=== PATIENT | male | born 1965 | race Caucasian/White ===

== ENCOUNTER 2018-10-11 17:41 | Inpatient (IN) | payer MEDICAID, OTHER | END 2018-10-28 15:50 | disposition left against medical advice (07) | LOC: TELE-EAST 10-12 04:22 → EAST 10-25 10:41 → ER 17:41 → TELE 17:42 | DX: T43.222A Poisoning by selective serotonin reuptake inhibitors, intentional self-harm, initial encounter (principal); I11.0 Hypertensive heart disease with heart failure; I50.9 Heart failure, unspecified; R56.9 Unspecified convulsions; F20.9 Schizophrenia, unspecified; R16.0 Hepatomegaly, not elsewhere classified; F31.9 Bipolar disorder, unspecified; K74.60 Unspecified cirrhosis of liver; R07.89 Other chest pain; T14.91XA Suicide attempt, initial encounter; Y92.009 Unspecified place in unspecified non-institutional (private) residence as the place of occurrence of the external cause; E66.9 Obesity, unspecified; E78.5 Hyperlipidemia, unspecified; K21.9 Gastro-esophageal reflux disease without esophagitis; J44.9 Chronic obstructive pulmonary disease, unspecified; F12.10 Cannabis abuse, uncomplicated; E11.9 Type 2 diabetes mellitus without complications; Z86.73 Personal history of transient ischemic attack (TIA), and cerebral infarction without residual deficits; T46.1X2A Poisoning by calcium-channel blockers, intentional self-harm, initial encounter; T43.592A Poisoning by other antipsychotics and neuroleptics, intentional self-harm, initial encounter; F41.8 Other specified anxiety disorders; B19.20 Unspecified viral hepatitis C without hepatic coma ==

== ENCOUNTER 2019-10-31 14:22 | Emergency (ER) | payer MEDICAID ==
[~2019-10-31] VITALS: Ht 182.9 cm; Wt 110.7 kg
[~2019-10-31 14:22] MED LIST: AML5T PO; ASPI81CH43 PO; ATOR10TA PO; FLUO-125 PO; FLUO20CA19 PO; OXCA300T50 OR; PANT40T PO; QUET50TA5 PO; RIS1T PO; TRAZ-181 PO; [UNRECOGNIZED DRUG - CODE] PO
[2019-10-31 15:38] VITALS: BP 124/84
[2019-10-31] MEDS ORDERED: ACETAMINOPHEN 500 MG TAB PO ONE (16:30)
== END 2019-10-31 16:40 | disposition home or self-care (01) ==
LOC: ER 14:22
DX: S63.612A Unspecified sprain of right middle finger, initial encounter (principal); S61.212A Laceration without foreign body of right middle finger without damage to nail, initial encounter; F17.210 Nicotine dependence, cigarettes, uncomplicated; Z79.899 Other long term (current) drug therapy; Z79.82 Long term (current) use of aspirin; E11.9 Type 2 diabetes mellitus without complications; E78.5 Hyperlipidemia, unspecified; J44.9 Chronic obstructive pulmonary disease, unspecified; I10 Essential (primary) hypertension; W19.XXXA Unspecified fall, initial encounter; Y93.89 Activity, other specified; Y92.89 Other specified places as the place of occurrence of the external cause; Y99.8 Other external cause status
CPT/HCPCS: 73130

== ENCOUNTER 2020-05-19 11:37 | Emergency (ER) | payer MEDICAID ==
[~2020-05-19] VITALS: Ht 182.9 cm; Wt 108.9 kg
[2020-05-19] MEDS ORDERED: LORazepam 2MG/ML-1ML VIAL IV ONE ×2 (12:00→12:45)
[2020-05-19] MEDS ORDERED: methylPREDNISolone SOD SUCC 125 MG/2 ML VL IV ONE (12:00)
[2020-05-19] MEDS ORDERED: SODIUM CHLORIDE 0.9% 1,000 ML IV ONE ×3 (12:00→14:30)
[2020-05-19 12:24] LABS: Basophils # (auto) 0.1 10 ^3/uL (0-0.2); Basophils % (auto) 0.9 % (0.0-2.0); Eosinophils # (auto) 0.2 10 ^3/uL (0-0.8); Eosinophils % (auto) 1.8 % (0.0-7.0); Hematocrit 46.5 % (41.0-53.0); Hemoglobin 15.8 g/dL (13.5-17.5); Lymphocytes # (auto) 1.1 10 ^3/uL (0.4-5.4); Lymphocytes % (auto) 13.4 % (10.0-50.0); Mean Corpuscular Hemoglobin 29.6 pg (28.0-32.0); Monocytes # (auto) 0.5 10 ^3/uL (0-1.3); Monocytes % (auto) 6.5 % (0.0-12.0); Neutrophils # (auto) 6.5 10 ^3/uL (1.6-8.6); Neutrophils % (auto) 77.4 % (37.0-80.0); Nucleated Red Blood Cells % 0.1 %; Platelet Count (auto) 223 10^3/uL (140-450); Red Blood Cells 5.35 10^6/uL (4.5-5.90); Red Cell Distribution Width 14.1 % (11.8-14.3); White Blood Cell 8.4 10^3/uL (4.4-10.8)
[2020-05-19 12:40] LABS: INR 0.98 (0.9-1.15)
[2020-05-19 12:57] LABS: Chloride 109 mmol/L (98-107); Potassium 4.3 mmol/L (3.5-5.1); Sodium 137 mmol/L (136-145)
[2020-05-19 13:09] LABS: Alanine Aminotransferase 106 U/L (16-61); Albumin 3.5 g/dL (3.4-5.0); Anion Gap 8 (5-15); Aspartate Aminotransferase 57 U/L (15-37); BUN/Creatinine Ratio 15.6; Blood Alcohol < 3.0 mg/dL (0-5); Blood Urea Nitrogen 12 mg/dL (7-18); Calcium 8.6 mg/dL (8.5-10.1); Carbon Dioxide 20 mmol/L (21-32); GFR African American 134 mL/min; GFR Non-African American 111 mL/min; Glucose 161 mg/dL (74-106); Magnesium 2.2 mg/dL (1.6-2.6)
[2020-05-19 13:10] LABS: Salicylate 2.9 mg/dL (2.8-20.0)
[2020-05-19 13:12] LABS: Acetaminophen < 2.0 ug/mL (10-30)
[2020-05-19 13:24] LABS: Alkaline Phosphatase 128 U/L (45-117); Bilirubin, Total 0.4 mg/dL (0.2-1.0); Total Protein 8.4 g/dL (6.4-8.2)
[2020-05-19 15:54] LABS: Alcohol, Urine < 3.0 mg/dL (0-10); Amphetamine Screen, Urine POSITIVE (NEGATIVE); Barbiturate Scree,Urine NEGATIVE (NEGATIVE); Benzodiazephine Screen, Urine NEGATIVE (NEGATIVE); Cannabinoid Screen, Urine POSITIVE (NEGATIVE); Cocaine Screen, Urine NEGATIVE (NEGATIVE); Phencyclidine Screen, Urine NEGATIVE (NEGATIVE)
[2020-05-19] MEDS ORDERED: THIAMINE INJ 100 MG in SODIUM CHLORIDE 0.9% 1,000 ML IV ONE (16:00)
[2020-05-19 16:01] LABS: Opiate Scree,Urine NEGATIVE (NEGATIVE)
[2020-05-19 16:14] VITALS: BP 145/73
== END 2020-05-19 17:32 | disposition home or self-care (01) ==
LOC: ER 11:37
DX: T43.201A Poisoning by unspecified antidepressants, accidental (unintentional), initial encounter (principal); R07.89 Other chest pain; K74.60 Unspecified cirrhosis of liver; F10.239 Alcohol dependence with withdrawal, unspecified; F19.10 Other psychoactive substance abuse, uncomplicated; I11.0 Hypertensive heart disease with heart failure; I50.9 Heart failure, unspecified; E11.9 Type 2 diabetes mellitus without complications; F17.210 Nicotine dependence, cigarettes, uncomplicated; E78.5 Hyperlipidemia, unspecified; Z90.49 Acquired absence of other specified parts of digestive tract; Z20.822 Contact with and (suspected) exposure to COVID-19; Y90.8 Blood alcohol level of 240 mg/100 ml or more; Y92.9 Unspecified place or not applicable
CPT/HCPCS: 36415; 71045; 80053; 80307; 80320; 80329; 83605; 83735; 83880; 84443; 84484; 85025; 85379; 85610; 85730; 87426; 93005; 96361; 96365; 96375; 96376; 99285; J2060; J2930; J3411; J7030

== ENCOUNTER 2020-05-26 18:48 | Emergency (ER) | payer MEDICAID ==
[~2020-05-26] VITALS: Ht 185.4 cm; Wt 117.9 kg
[2020-05-26 19:15] LABS: Basophils # (auto) 0.1 10 ^3/uL (0-0.2); Basophils % (auto) 0.4 % (0.0-2.0); Eosinophils # (auto) 0 10 ^3/uL (0-0.8); Hematocrit 46.1 % (41.0-53.0); Hemoglobin 15.3 g/dL (13.5-17.5); Lymphocytes # (auto) 1.2 10 ^3/uL (0.4-5.4); Lymphocytes % (auto) 7.4 % (10.0-50.0); Mean Corpuscular Hemoglobin 29.3 pg (28.0-32.0); Mean Corpuscular Hgb Conc. 33.1 g/dL (32.0-36.0); Mean Corpuscular Volume 88.5 fL (80.0-100.0); Monocytes # (auto) 0.7 10 ^3/uL (0-1.3); Monocytes % (auto) 4.6 % (0.0-12.0); Neutrophils # (auto) 14.2 10 ^3/uL (1.6-8.6); Neutrophils % (auto) 87.6 % (37.0-80.0); Nucleated Red Blood Cells % 0.1 %; Platelet Count (auto) 245 10^3/uL (140-450); Red Blood Cells 5.21 10^6/uL (4.5-5.90); Red Cell Distribution Width 14.6 % (11.8-14.3); White Blood Cell 16.3 10^3/uL (4.4-10.8)
[2020-05-26] MEDS ORDERED: ACCU-CHEK COMFORT CURVE STRIP VI ONE (19:15)
[2020-05-26 19:32] LABS: Albumin 4.2 g/dL (3.4-5.0); BUN/Creatinine Ratio 22.8; Calcium 8.5 mg/dL (8.5-10.1); Potassium 4.8 mmol/L (3.5-5.1)
[2020-05-26 19:33] LABS: Salicylate < 1.7 mg/dL (2.8-20.0)
[2020-05-26 19:34] LABS: Acetaminophen < 2.0 ug/mL (10-30); Bilirubin, Total 0.7 mg/dL (0.2-1.0); Cocaine Screen, Urine NEGATIVE (NEGATIVE); Phencyclidine Screen, Urine NEGATIVE (NEGATIVE); Total Protein 8.5 g/dL (6.4-8.2)
[2020-05-26 19:47] LABS: Amphetamine Screen, Urine POSITIVE (NEGATIVE); Barbiturate Scree,Urine NEGATIVE (NEGATIVE); Benzodiazephine Screen, Urine POSITIVE (NEGATIVE); Opiate Scree,Urine NEGATIVE (NEGATIVE)
[2020-05-26 20:01] LABS: Cannabinoid Screen, Urine POSITIVE (NEGATIVE)
[2020-05-26 20:31] LABS: Urine Bacteria NONE SEEN /hpf (None Seen); Urine Blood Negative /uL (Negative); Urine Hyaline Cast MANY /lpf (0 - 2); Urine Mucus FEW (None Seen); Urine Specific Gravity 1.025 (1.001-1.035); Urine WBC <1 /hpf (0 - 3)
[2020-05-27] MEDS ORDERED: ONDANSETRON HCL 4 MG/2 ML VIAL IV ONE (02:45)
[2020-05-27] MEDS ORDERED: FAMOTIDINE (10MG/ML) 2ML VL IV ONE (03:00)
[2020-05-27] MEDS ORDERED: DONNATAL 5ml ORAL Elix (BELLADONNA ALK-PHENOBARB) PO ONE (04:45)
[2020-05-27] MEDS ORDERED: METOCLOPRAMIDE HCL 5MG/ml INJ 2ml VIAL IV ONE (04:45)
[2020-05-27 08:06] VITALS: BP 123/72
== END 2020-05-27 09:50 | disposition left against medical advice (07) ==
LOC: EDBD 18:48 → ER 18:51
DX: R41.82 Altered mental status, unspecified (principal); I11.0 Hypertensive heart disease with heart failure; I50.9 Heart failure, unspecified; E11.9 Type 2 diabetes mellitus without complications; Z88.6 Allergy status to analgesic agent; Z86.73 Personal history of transient ischemic attack (TIA), and cerebral infarction without residual deficits
CPT/HCPCS: 36415; 76705; 80053; 80307; 80329; 81001; 82962; 83605; 85025; 87040; 93005; 96374; 96375; 99285; J2405; J2765; J3490

== ENCOUNTER 2020-08-04 15:58 | Emergency (ER) | payer MEDICAID ==
[~2020-08-04] VITALS: Ht 182.9 cm; Wt 106.6 kg
[2020-08-04] MEDS ORDERED: THIAMINE 100mg/ml INJ (200mg/2ml VIAL) IV ONE (16:15)
[2020-08-04] MEDS ORDERED: SODIUM CHLORIDE 0.9% 1,000 ML IV ONE ×2 (16:15)
[2020-08-04] MEDS ORDERED: LORazepam 2MG/ML-1ML VIAL IV ONE (16:30)
[2020-08-04 17:13] LABS: Basophils # (auto) 0 10 ^3/uL (0-0.2); Basophils % (auto) 0.3 % (0.0-2.0); Eosinophils # (auto) 0 10 ^3/uL (0-0.8); Eosinophils % (auto) 0.1 % (0.0-7.0); Hemoglobin 14.3 g/dL (13.5-17.5); Lymphocytes # (auto) 0.9 10 ^3/uL (0.4-5.4); Lymphocytes % (auto) 5.3 % (10.0-50.0); Mean Corpuscular Hemoglobin 29.6 pg (28.0-32.0); Mean Corpuscular Hgb Conc. 34.2 g/dL (32.0-36.0); Mean Corpuscular Volume 86.7 fL (80.0-100.0); Monocytes % (auto) 5.7 % (0.0-12.0); Neutrophils # (auto) 15.3 10 ^3/uL (1.6-8.6); Neutrophils % (auto) 88.6 % (37.0-80.0); Platelet Count (auto) 227 10^3/uL (140-450); Red Blood Cells 4.85 10^6/uL (4.5-5.90); Red Cell Distribution Width 14.2 % (11.8-14.3); White Blood Cell 17.2 10^3/uL (4.4-10.8)
[2020-08-04 17:32] LABS: Albumin 3.2 g/dL (3.4-5.0); Anion Gap 7 (5-15); Blood Alcohol < 3.0 mg/dL (0-5); Blood Urea Nitrogen 9 mg/dL (7-18); Calcium 8.5 mg/dL (8.5-10.1); Carbon Dioxide 21 mmol/L (21-32); Chloride 113 mmol/L (98-107); Glucose 184 mg/dL (74-106); Potassium 4.3 mmol/L (3.5-5.1); Sodium 141 mmol/L (136-145)
[2020-08-04 17:36] LABS: Alanine Aminotransferase 54 U/L (16-61); Alkaline Phosphatase 109 U/L (45-117); Aspartate Aminotransferase 19 U/L (15-37); BUN/Creatinine Ratio 9.7; Bilirubin, Total 0.2 mg/dL (0.2-1.0); GFR African American 108 mL/min; GFR Non-African American 89 mL/min; Total Protein 7.4 g/dL (6.4-8.2)
[2020-08-04 19:25] LABS: Alcohol, Urine < 3.0 mg/dL (0-10); Amphetamine Screen, Urine POSITIVE (NEGATIVE); Barbiturate Scree,Urine NEGATIVE (NEGATIVE); Benzodiazephine Screen, Urine NEGATIVE (NEGATIVE); Cannabinoid Screen, Urine POSITIVE (NEGATIVE); Cocaine Screen, Urine NEGATIVE (NEGATIVE); Opiate Scree,Urine NEGATIVE (NEGATIVE); Phencyclidine Screen, Urine NEGATIVE (NEGATIVE)
[2020-08-04] MEDS: cefTRIAXone 1GM/50ML D5W 50 ML IV ONE ×2 (20:00→22:00)
[2020-08-05 00:55] VITALS: BP 138/78
== END 2020-08-05 01:00 | disposition home or self-care (01) ==
LOC: ER 15:58
DX: R45.851 Suicidal ideations (principal); F15.10 Other stimulant abuse, uncomplicated; F17.210 Nicotine dependence, cigarettes, uncomplicated; I10 Essential (primary) hypertension; Z85.118 Personal history of other malignant neoplasm of bronchus and lung; Z88.6 Allergy status to analgesic agent; Z79.82 Long term (current) use of aspirin; Z79.899 Other long term (current) drug therapy; Z90.89 Acquired absence of other organs; Z90.49 Acquired absence of other specified parts of digestive tract
CPT/HCPCS: 36415; 71045; 80053; 80307; 80320; 85025; 93005; 96361; 96365; 96375; 99285; J0696; J2060; J3411

== ENCOUNTER 2020-08-11 06:28 | Inpatient (IN) | payer MEDICAID ==
[~2020-08-11] VITALS: Ht 154.9 cm; Wt 104.5 kg
[2020-08-11 07:20] LABS: Basophils # (auto) 0.1 10 ^3/uL (0-0.2); Basophils % (auto) 0.5 % (0.0-2.0); Eosinophils # (auto) 0 10 ^3/uL (0-0.8); Hematocrit 50.6 % (41.0-53.0); Hemoglobin 17.3 g/dL (13.5-17.5); Lymphocytes # (auto) 1.1 10 ^3/uL (0.4-5.4); Lymphocytes % (auto) 4.6 % (10.0-50.0); Mean Corpuscular Hemoglobin 29.2 pg (28.0-32.0); Mean Corpuscular Hgb Conc. 34.2 g/dL (32.0-36.0); Mean Corpuscular Volume 85.3 fL (80.0-100.0); Monocytes # (auto) 1.4 10 ^3/uL (0-1.3); Monocytes % (auto) 5.9 % (0.0-12.0); Neutrophils # (auto) 21.8 10 ^3/uL (1.6-8.6); Nucleated Red Blood Cells % 0.1 %; Platelet Count (auto) 280 10^3/uL (140-450); Red Blood Cells 5.94 10^6/uL (4.5-5.90); Red Cell Distribution Width 14.7 % (11.8-14.3); White Blood Cell 24.5 10^3/uL (4.4-10.8)
[2020-08-11 07:40] LABS: INR 1.01 (0.9-1.15); Partial Thromboplastin Time 26.2 sec (23.0-31.2)
[2020-08-11 07:44] LABS: Albumin 4.4 g/dL (3.4-5.0); Amylase 98 U/L (25-115); Anion Gap 19 (5-15); Blood Urea Nitrogen 47 mg/dL (7-18); Calcium 9.6 mg/dL (8.5-10.1); Carbon Dioxide 25 mmol/L (21-32); Chloride 91 mmol/L (98-107); Glucose 97 mg/dL (74-106); Lipase 151 U/L (73-393); Magnesium 3.9 mg/dL (1.6-2.6); Potassium 4.3 mmol/L (3.5-5.1); Sodium 135 mmol/L (136-145)
[2020-08-11 07:50] LABS: Alanine Aminotransferase 100 U/L (16-61); Alkaline Phosphatase 127 U/L (45-117); Aspartate Aminotransferase 64 U/L (15-37); BUN/Creatinine Ratio 10.2; Bilirubin, Total 0.9 mg/dL (0.2-1.0); GFR African American 17 mL/min; GFR Non-African American 14 mL/min; Total Protein 9.7 g/dL (6.4-8.2)
[2020-08-11 11:32] LABS: Urine WBC None Seen /hpf (0 - 3)
[2020-08-11 11:47] LABS: Urine Bacteria NONE SEEN /hpf (None Seen); Urine Blood 1+ /uL (Negative); Urine Hyaline Cast FEW /lpf (0 - 2); Urine Specific Gravity 1.015 (1.001-1.035)
[2020-08-11 13:53] LABS: Alcohol, Urine < 3.0 mg/dL (0-10); Amphetamine Screen, Urine POSITIVE (NEGATIVE); Barbiturate Scree,Urine NEGATIVE (NEGATIVE); Benzodiazephine Screen, Urine NEGATIVE (NEGATIVE); Cannabinoid Screen, Urine NEGATIVE (NEGATIVE); Cocaine Screen, Urine NEGATIVE (NEGATIVE); Opiate Scree,Urine NEGATIVE (NEGATIVE); Phencyclidine Screen, Urine NEGATIVE (NEGATIVE)
[2020-08-11] MEDS ORDERED: metroNIDAZOLE 500MG/100ML 100 ML IV ONE (15:45)
[2020-08-11] MEDS ORDERED: cefTRIAXone 1GM/50ML D5W 50 ML IV ONE (15:45)
[2020-08-11] MEDS ORDERED: NITROGLYCERIN 0.4 MG SL TAB SL PRN (17:15)
[2020-08-11] MEDS ORDERED: MORPHINE SULF INJ 2 MG/ML SYRINGE 1ML IV PRN (17:15)
[2020-08-11] MEDS ORDERED: ACETAMINOPHEN 325 MG TAB PO PRN (17:15)
[2020-08-11] MEDS ORDERED: ONDANSETRON HCL 4 MG/2 ML VIAL IV PRN (17:15)
[2020-08-11] MEDS: SODIUM CHLORIDE 0.9% 1,000 ML IV SCH (17:53)
[2020-08-11] MEDS ORDERED: HEPARIN SODIUM (PORCINE) 5000 UNITS/ML 1ML VIAL ONE ×2 (21:57)
[2020-08-11] MEDS ORDERED: HEPARIN SODIUM (PORCINE) 5000 UNITS/ML 1ML VIAL SC SCH (22:00)
[2020-08-11] MEDS: MORPHINE SULF INJ 2 MG/ML SYRINGE 1ML IV PRN (22:15)
[2020-08-11 22:42] VITALS: BP 110/66
[2020-08-11] MEDS: metroNIDAZOLE 500MG/100ML 100 ML IV SCH (22:57)
[2020-08-12] MEDS: SODIUM CHLORIDE 0.9% 1,000 ML IV SCH ×3 (01:33→17:39)
[2020-08-12] MEDS: MORPHINE SULF INJ 2 MG/ML SYRINGE 1ML IV PRN ×4 (02:19→18:53)
[2020-08-12 05:00] VITALS: BP 91/62
[2020-08-12] MEDS: metroNIDAZOLE 500MG/100ML 100 ML IV SCH ×3 (05:08→20:43)
[2020-08-12] MEDS ORDERED: HEPARIN SODIUM (PORCINE) 5000 UNITS/ML 1ML VIAL IV SCH (06:00)
[2020-08-12 06:15] LABS: Basophils # (auto) 0 10 ^3/uL (0-0.2); Basophils % (auto) 0.2 % (0.0-2.0); Eosinophils # (auto) 0.1 10 ^3/uL (0-0.8); Eosinophils % (auto) 0.9 % (0.0-7.0); Hematocrit 42.2 % (41.0-53.0); Hemoglobin 14.2 g/dL (13.5-17.5); Lymphocytes # (auto) 1.4 10 ^3/uL (0.4-5.4); Lymphocytes % (auto) 14.4 % (10.0-50.0); Mean Corpuscular Hemoglobin 28.6 pg (28.0-32.0); Mean Corpuscular Hgb Conc. 33.7 g/dL (32.0-36.0); Monocytes # (auto) 0.9 10 ^3/uL (0-1.3); Monocytes % (auto) 9.2 % (0.0-12.0); Neutrophils # (auto) 7.2 10 ^3/uL (1.6-8.6); Neutrophils % (auto) 75.3 % (37.0-80.0); Platelet Count (auto) 183 10^3/uL (140-450); Red Blood Cells 4.96 10^6/uL (4.5-5.90); Red Cell Distribution Width 14.5 % (11.8-14.3); White Blood Cell 9.6 10^3/uL (4.4-10.8)
[2020-08-12 06:29] LABS: Albumin 3.2 g/dL (3.4-5.0); Calcium 7.8 mg/dL (8.5-10.1); Magnesium 3.2 mg/dL (1.6-2.6); Potassium 4.4 mmol/L (3.5-5.1)
[2020-08-12 06:35] LABS: BUN/Creatinine Ratio 23.4; Bilirubin, Total 1.3 mg/dL (0.2-1.0); Total Protein 7.1 g/dL (6.4-8.2)
[2020-08-12 08:41] VITALS: BP 105/52
[2020-08-12] MEDS: cefTRIAXone 1GM/50ML D5W 50 ML IV SCH (08:49)
[2020-08-12 11:53] LABS: Protein, Urine 126.2 mg/dL (0.0-11.9)
[2020-08-12 12:43] VITALS: BP 101/58
[2020-08-12 17:00] VITALS: BP 100/54
[2020-08-12] MEDS: QUEtiapine FUMARATE 100 MG TAB PO SCH (20:44)
[2020-08-12] MEDS: HEPARIN SODIUM (PORCINE) 5000 UNITS/ML 1ML VIAL SC SCH (20:45)
[2020-08-12 22:10] VITALS: BP 102/52
[2020-08-13] MEDS: MORPHINE SULF INJ 2 MG/ML SYRINGE 1ML IV PRN ×4 (00:24→21:29)
[2020-08-13] MEDS: SODIUM CHLORIDE 0.9% 1,000 ML IV SCH ×3 (01:15→13:00)
[2020-08-13] MEDS: metroNIDAZOLE 500MG/100ML 100 ML IV SCH ×3 (05:07→21:19)
[2020-08-13 05:10] VITALS: BP 111/63
[2020-08-13 05:38] LABS: Basophils # (auto) 0 10 ^3/uL (0-0.2); Basophils % (auto) 0.7 % (0.0-2.0); Eosinophils # (auto) 0.1 10 ^3/uL (0-0.8); Eosinophils % (auto) 1.8 % (0.0-7.0); Hematocrit 37.4 % (41.0-53.0); Hemoglobin 12.8 g/dL (13.5-17.5); Lymphocytes # (auto) 1.1 10 ^3/uL (0.4-5.4); Lymphocytes % (auto) 19.4 % (10.0-50.0); Mean Corpuscular Hemoglobin 29.7 pg (28.0-32.0); Mean Corpuscular Hgb Conc. 34.1 g/dL (32.0-36.0); Monocytes # (auto) 0.8 10 ^3/uL (0-1.3); Monocytes % (auto) 13.3 % (0.0-12.0); Neutrophils # (auto) 3.8 10 ^3/uL (1.6-8.6); Neutrophils % (auto) 64.8 % (37.0-80.0); Nucleated Red Blood Cells % 0.1 %; Platelet Count (auto) 135 10^3/uL (140-450); Red Cell Distribution Width 14.5 % (11.8-14.3); White Blood Cell 5.9 10^3/uL (4.4-10.8)
[2020-08-13 09:00] VITALS: BP 104/67
[2020-08-13] MEDS: cefTRIAXone 1GM/50ML D5W 50 ML IV SCH (09:28)
[2020-08-13] MEDS: PANTOPRAZOLE 40 MG TAB PO SCH (09:29)
[2020-08-13] MEDS: HEPARIN SODIUM (PORCINE) 5000 UNITS/ML 1ML VIAL SC SCH ×3 (09:39→21:21)
[2020-08-13 12:22] LABS: Albumin 2.7 g/dL (3.4-5.0)
[2020-08-13 12:26] LABS: BUN/Creatinine Ratio 30.8; Bilirubin, Total 0.3 mg/dL (0.2-1.0); Calcium 7.7 mg/dL (8.5-10.1); Total Protein 6.3 g/dL (6.4-8.2)
[2020-08-13] MEDS: HYOSCYAMINE SULF 0.125 MG ODT TAB PO PRN ×2 (13:23→14:50)
[2020-08-13 16:57] VITALS: BP 119/70
[2020-08-13] MEDS: QUEtiapine FUMARATE 100 MG TAB PO SCH (21:19)
[2020-08-13 22:00] VITALS: BP 113/72
[2020-08-14] MEDS: MORPHINE SULF INJ 2 MG/ML SYRINGE 1ML IV PRN ×4 (01:02→20:07)
[2020-08-14] MEDS: SODIUM CHLORIDE 0.9% 1,000 ML IV SCH ×3 (01:15→17:15)
[2020-08-14 05:00] VITALS: BP 115/48
[2020-08-14] MEDS: metroNIDAZOLE 500MG/100ML 100 ML IV SCH ×3 (05:10→22:17)
[2020-08-14] MEDS ORDERED: GOLYTELY 4L KIT PO ONE (10:00)
[2020-08-14 10:25] VITALS: BP 107/66
[2020-08-14] MEDS: cefTRIAXone 1GM/50ML D5W 50 ML IV SCH (10:39)
[2020-08-14] MEDS: PANTOPRAZOLE 40 MG TAB PO SCH (10:39)
[2020-08-14] MEDS: HEPARIN SODIUM (PORCINE) 5000 UNITS/ML 1ML VIAL SC SCH ×2 (10:40→22:00)
[2020-08-14 13:00] VITALS: BP 113/72
[2020-08-14 17:23] VITALS: BP 132/71
[2020-08-14 22:00] VITALS: BP 129/74
[2020-08-14] MEDS: QUEtiapine FUMARATE 100 MG TAB PO SCH (22:17)
[2020-08-15] MEDS: SODIUM CHLORIDE 0.9% 1,000 ML IV SCH ×3 (01:15→17:15)
[2020-08-15] MEDS: metroNIDAZOLE 500MG/100ML 100 ML IV SCH ×3 (06:19→21:56)
[2020-08-15] MEDS: HEPARIN SODIUM (PORCINE) 5000 UNITS/ML 1ML VIAL SC SCH ×2 (08:39→22:03)
[2020-08-15 08:42] LABS: Basophils # (auto) 0.1 10 ^3/uL (0-0.2); Basophils % (auto) 1.1 % (0.0-2.0); Eosinophils # (auto) 0.2 10 ^3/uL (0-0.8); Eosinophils % (auto) 3.6 % (0.0-7.0); Hematocrit 41.5 % (41.0-53.0); Hemoglobin 14.5 g/dL (13.5-17.5); Lymphocytes # (auto) 0.9 10 ^3/uL (0.4-5.4); Mean Corpuscular Hemoglobin 29.6 pg (28.0-32.0); Mean Corpuscular Hgb Conc. 34.9 g/dL (32.0-36.0); Mean Corpuscular Volume 84.7 fL (80.0-100.0); Monocytes # (auto) 0.6 10 ^3/uL (0-1.3); Monocytes % (auto) 11.1 % (0.0-12.0); Neutrophils % (auto) 69.2 % (37.0-80.0); Nucleated Red Blood Cells % 0.1 %; Platelet Count (auto) 148 10^3/uL (140-450); Red Blood Cells 4.89 10^6/uL (4.5-5.90); Red Cell Distribution Width 13.9 % (11.8-14.3); White Blood Cell 5.7 10^3/uL (4.4-10.8)
[2020-08-15] MEDS: cefTRIAXone 1GM/50ML D5W 50 ML IV SCH (08:49)
[2020-08-15] MEDS: PANTOPRAZOLE 40 MG TAB PO SCH (08:50)
[2020-08-15 09:00] VITALS: BP 113/64
[2020-08-15 09:04] LABS: INR 1.08 (0.9-1.15); Partial Thromboplastin Time 26.4 sec (23.0-31.2); Potassium 4.6 mmol/L (3.5-5.1)
[2020-08-15 09:11] LABS: BUN/Creatinine Ratio 20.5; Bilirubin, Total 0.5 mg/dL (0.2-1.0); Calcium 8.8 mg/dL (8.5-10.1); Magnesium 1.8 mg/dL (1.6-2.6); Phosphorus 2.1 mg/dL (2.5-4.90)
[2020-08-15] MEDS: MORPHINE SULF INJ 2 MG/ML SYRINGE 1ML IV PRN ×4 (09:17→21:59)
[2020-08-15] MEDS ORDERED: SODIUM PHOSPHATES 20 MEQ in SODIUM CHL 0.9% 100 ML IV ONE (12:15)
[2020-08-15 13:00] VITALS: BP 107/56
[2020-08-15 16:32] VITALS: BP 105/58
[2020-08-15 21:15] VITALS: BP 121/78
[2020-08-15] MEDS: QUEtiapine FUMARATE 100 MG TAB PO SCH (21:56)
[2020-08-15] MEDS: BENZTROPINE MESY 0.5 MG TAB PO SCH (21:57)
[2020-08-15] MEDS ORDERED: LORazepam 2MG/ML-1ML VIAL IV PRN (22:15)
[2020-08-15 23:37] LABS: Folate (Folic Acid) 14.06 ng/mL (5.38-24)
[2020-08-16] MEDS: SODIUM CHLORIDE 0.9% 1,000 ML IV SCH ×3 (01:15→17:15)
[2020-08-16 04:15] VITALS: BP 115/62
[2020-08-16] MEDS: metroNIDAZOLE 500MG/100ML 100 ML IV SCH (05:42)
[2020-08-16] MEDS: QUEtiapine FUMARATE 25 MG TAB PO SCH ×2 (06:02→07:37)
[2020-08-16] MEDS: cefTRIAXone 1GM/50ML D5W 50 ML IV SCH (07:36)
[2020-08-16] MEDS: PANTOPRAZOLE 40 MG TAB PO SCH (07:37)
[2020-08-16] MEDS: BENZTROPINE MESY 0.5 MG TAB PO SCH ×2 (07:37→21:59)
[2020-08-16] MEDS: FLUoxetine HCL 20 MG CAP PO SCH (07:37)
[2020-08-16] MEDS: MORPHINE SULF INJ 2 MG/ML SYRINGE 1ML IV PRN ×5 (07:38→21:56)
[2020-08-16] MEDS: HEPARIN SODIUM (PORCINE) 5000 UNITS/ML 1ML VIAL SC SCH ×2 (07:45→22:01)
[2020-08-16 09:00] VITALS: BP 111/64
[2020-08-16 12:41] VITALS: BP 108/74
[2020-08-16 17:00] VITALS: BP 117/69
[2020-08-16] MEDS: QUEtiapine FUMARATE 100 MG TAB PO SCH (21:58)
[2020-08-16 22:00] VITALS: BP 124/73
[2020-08-17] MEDS: SODIUM CHLORIDE 0.9% 1,000 ML IV SCH ×2 (01:15→20:49)
[2020-08-17] MEDS: MORPHINE SULF INJ 2 MG/ML SYRINGE 1ML IV PRN ×3 (02:05→20:32)
[2020-08-17 06:18] VITALS: BP 116/60
[2020-08-17 07:06] LABS: Immunoglobulin G, Serum 1137 mg/dL (603-1613)
[2020-08-17 09:00] VITALS: BP 121/69
[2020-08-17] MEDS: HEPARIN SODIUM (PORCINE) 5000 UNITS/ML 1ML VIAL SC SCH ×2 (10:00→22:58)
[2020-08-17] MEDS: PANTOPRAZOLE 40 MG TAB PO SCH (10:59)
[2020-08-17] MEDS: FLUoxetine HCL 20 MG CAP PO SCH (11:00)
[2020-08-17] MEDS: BENZTROPINE MESY 0.5 MG TAB PO SCH ×2 (11:00→22:57)
[2020-08-17 13:00] VITALS: BP 105/60
[2020-08-17 17:00] VITALS: BP 120/65
[2020-08-17] MEDS: QUEtiapine FUMARATE 100 MG TAB PO SCH (22:57)
[2020-08-18] MEDS: SODIUM CHLORIDE 0.9% 1,000 ML IV SCH ×3 (01:15→21:10)
[2020-08-18] MEDS: MORPHINE SULF INJ 2 MG/ML SYRINGE 1ML IV PRN ×3 (03:15→20:57)
[2020-08-18] MEDS: QUEtiapine FUMARATE 25 MG TAB PO SCH (05:41)
[2020-08-18 09:00] VITALS: BP 100/49
[2020-08-18] MEDS: BENZTROPINE MESY 0.5 MG TAB PO SCH ×2 (09:27→20:57)
[2020-08-18] MEDS: HEPARIN SODIUM (PORCINE) 5000 UNITS/ML 1ML VIAL SC SCH ×2 (09:29→20:59)
[2020-08-18] MEDS: FLUoxetine HCL 20 MG CAP PO SCH (09:29)
[2020-08-18] MEDS: PANTOPRAZOLE 40 MG TAB PO SCH (09:29)
[2020-08-18 13:00] VITALS: BP 100/68
[2020-08-18 17:00] VITALS: BP 121/67
[2020-08-18] MEDS: QUEtiapine FUMARATE 100 MG TAB PO SCH (20:58)
[2020-08-18 22:00] VITALS: BP 105/63
[2020-08-19] MEDS: SODIUM CHLORIDE 0.9% 1,000 ML IV SCH ×3 (01:15→17:15)
[2020-08-19 05:00] VITALS: BP 101/54
[2020-08-19] MEDS: QUEtiapine FUMARATE 25 MG TAB PO SCH (05:11)
[2020-08-19 05:41] LABS: Basophils # (auto) 0 10 ^3/uL (0-0.2); Eosinophils # (auto) 0.2 10 ^3/uL (0-0.8); Hematocrit 37.9 % (41.0-53.0); Lymphocytes # (auto) 1.1 10 ^3/uL (0.4-5.4); Lymphocytes % (auto) 22.5 % (10.0-50.0); Mean Corpuscular Hemoglobin 29.3 pg (28.0-32.0); Mean Corpuscular Hgb Conc. 34.4 g/dL (32.0-36.0); Mean Corpuscular Volume 85.3 fL (80.0-100.0); Monocytes # (auto) 0.5 10 ^3/uL (0-1.3); Monocytes % (auto) 10.6 % (0.0-12.0); Neutrophils # (auto) 3.2 10 ^3/uL (1.6-8.6); Neutrophils % (auto) 61.9 % (37.0-80.0); Nucleated Red Blood Cells % 0.2 %; Platelet Count (auto) 151 10^3/uL (140-450); Red Blood Cells 4.44 10^6/uL (4.5-5.90); Red Cell Distribution Width 14.1 % (11.8-14.3); White Blood Cell 5.1 10^3/uL (4.4-10.8)
[2020-08-19] MEDS: MORPHINE SULF INJ 2 MG/ML SYRINGE 1ML IV PRN ×4 (06:06→22:25)
[2020-08-19 06:09] LABS: Potassium 4.3 mmol/L (3.5-5.1)
[2020-08-19 06:54] LABS: BUN/Creatinine Ratio 27.7; Calcium 8.5 mg/dL (8.5-10.1); Magnesium 2.1 mg/dL (1.6-2.6)
[2020-08-19 09:00] VITALS: BP 110/60
[2020-08-19] MEDS: BENZTROPINE MESY 0.5 MG TAB PO SCH ×2 (10:27→20:50)
[2020-08-19] MEDS: FLUoxetine HCL 20 MG CAP PO SCH (10:27)
[2020-08-19] MEDS: PANTOPRAZOLE 40 MG TAB PO SCH (10:27)
[2020-08-19] MEDS: HEPARIN SODIUM (PORCINE) 5000 UNITS/ML 1ML VIAL SC SCH ×2 (10:30→20:50)
[2020-08-19 13:00] VITALS: BP 103/53
[2020-08-19 17:00] VITALS: BP 118/57
[2020-08-19] MEDS: QUEtiapine FUMARATE 100 MG TAB PO SCH (20:50)
[2020-08-19 22:00] VITALS: BP 115/55
[2020-08-20] MEDS: SODIUM CHLORIDE 0.9% 1,000 ML IV SCH ×3 (02:18→17:15)
[2020-08-20] MEDS: QUEtiapine FUMARATE 25 MG TAB PO SCH (05:26)
[2020-08-20] MEDS: MORPHINE SULF INJ 2 MG/ML SYRINGE 1ML IV PRN ×4 (05:55→22:45)
[2020-08-20 06:00] VITALS: BP 112/62
[2020-08-20 09:00] VITALS: BP 142/64
[2020-08-20] MEDS: BENZTROPINE MESY 0.5 MG TAB PO SCH ×2 (09:25→21:59)
[2020-08-20] MEDS: PANTOPRAZOLE 40 MG TAB PO SCH (09:25)
[2020-08-20] MEDS: FLUoxetine HCL 20 MG CAP PO SCH (09:25)
[2020-08-20] MEDS: HEPARIN SODIUM (PORCINE) 5000 UNITS/ML 1ML VIAL SC SCH ×2 (09:28→22:06)
[2020-08-20 13:00] VITALS: BP 128/64
[2020-08-20 17:00] VITALS: BP 130/72
[2020-08-20] MEDS: QUEtiapine FUMARATE 100 MG TAB PO SCH (21:59)
[2020-08-20 22:00] VITALS: BP 108/59
[2020-08-21] MEDS: SODIUM CHLORIDE 0.9% 1,000 ML IV SCH ×2 (01:15→09:15)
[2020-08-21 05:00] VITALS: BP 125/67
[2020-08-21 05:18] LABS: Basophils # (auto) 0 10 ^3/uL (0-0.2); Basophils % (auto) 0.9 % (0.0-2.0); Eosinophils # (auto) 0.2 10 ^3/uL (0-0.8); Eosinophils % (auto) 3.5 % (0.0-7.0); Hematocrit 36.8 % (41.0-53.0); Hemoglobin 12.6 g/dL (13.5-17.5); Lymphocytes % (auto) 21.3 % (10.0-50.0); Mean Corpuscular Hemoglobin 29.6 pg (28.0-32.0); Mean Corpuscular Hgb Conc. 34.3 g/dL (32.0-36.0); Mean Corpuscular Volume 86.3 fL (80.0-100.0); Monocytes # (auto) 0.6 10 ^3/uL (0-1.3); Monocytes % (auto) 13.1 % (0.0-12.0); Neutrophils % (auto) 61.2 % (37.0-80.0); Platelet Count (auto) 135 10^3/uL (140-450); Red Blood Cells 4.26 10^6/uL (4.5-5.90); Red Cell Distribution Width 14.6 % (11.8-14.3); White Blood Cell 4.8 10^3/uL (4.4-10.8)
[2020-08-21 05:37] LABS: Potassium 4.1 mmol/L (3.5-5.1)
[2020-08-21 05:41] LABS: BUN/Creatinine Ratio 36.4; Calcium 7.7 mg/dL (8.5-10.1); Magnesium 2.1 mg/dL (1.6-2.6)
[2020-08-21] MEDS: QUEtiapine FUMARATE 25 MG TAB PO SCH (05:52)
[2020-08-21] MEDS: MORPHINE SULF INJ 2 MG/ML SYRINGE 1ML IV PRN ×2 (06:14→11:37)
[2020-08-21 09:00] VITALS: BP 119/68
[2020-08-21] MEDS: BENZTROPINE MESY 0.5 MG TAB PO SCH (11:08)
[2020-08-21] MEDS: PANTOPRAZOLE 40 MG TAB PO SCH (11:09)
[2020-08-21] MEDS: HEPARIN SODIUM (PORCINE) 5000 UNITS/ML 1ML VIAL SC SCH (11:10)
[2020-08-21] MEDS: FLUoxetine HCL 20 MG CAP PO SCH (11:10)
[2020-08-21 12:57] VITALS: BP 99/37
== END 2020-08-21 13:50 | disposition home or self-care (01) | DRG 469 ==
LOC: EDBD 06:28 → ER 06:28 → TELE 17:07 → TELE-WESTW 21:50 → WEST WING 08-15 10:15
PROVIDERS: ADMIT Internal Medicine; ATTEND Internal Medicine
DX: N17.0 Acute kidney failure with tubular necrosis (principal); E83.39 Other disorders of phosphorus metabolism; R45.851 Suicidal ideations; G24.01 Drug induced subacute dyskinesia; E86.0 Dehydration; F25.0 Schizoaffective disorder, bipolar type; E87.1 Hypo-osmolality and hyponatremia; E83.41 Hypermagnesemia; Z20.822 Contact with and (suspected) exposure to COVID-19; D72.829 Elevated white blood cell count, unspecified; N18.9 Chronic kidney disease, unspecified; E78.5 Hyperlipidemia, unspecified; F15.10 Other stimulant abuse, uncomplicated; K21.9 Gastro-esophageal reflux disease without esophagitis; F17.210 Nicotine dependence, cigarettes, uncomplicated; I12.9 Hypertensive chronic kidney disease with stage 1 through stage 4 chronic kidney disease, or unspecified chronic kidney disease; F51.04 Psychophysiologic insomnia; R74.01 Elevation of levels of liver transaminase levels; F12.90 Cannabis use, unspecified, uncomplicated; E66.9 Obesity, unspecified; Z88.6 Allergy status to analgesic agent; Z68.33 Body mass index [BMI] 33.0-33.9, adult; Z59.0 Homelessness; Z85.118 Personal history of other malignant neoplasm of bronchus and lung; Z90.49 Acquired absence of other specified parts of digestive tract; Z90.89 Acquired absence of other organs; Z82.49 Family history of ischemic heart disease and other diseases of the circulatory system; Z83.3 Family history of diabetes mellitus; Z79.899 Other long term (current) drug therapy
CPT/HCPCS: 36415; 70551; 71046; 74176; 80048; 80053; 80307; 81001; 82150; 82570; 82607; 82746; 82784; 83036; 83605; 83690; 83735; 84100; 84156; 84300; 84443; 84484; 85025; 85610; 85730; 86334; 86850; 86900; 86901; 87040; 87081; 87426; 93005; 95819; 96365; 96368; 97110; 97116; 97530; G0378; J0696; J3490

== ENCOUNTER 2020-10-13 10:57 | Emergency (ER) | payer MEDICAID ==
[~2020-10-13] VITALS: Ht 182.9 cm; Wt 108.9 kg
[~2020-10-13 10:57] MED LIST changes: -FLUO-125 PO
[2020-10-13 11:05] VITALS: BP 113/66
[2020-10-13 11:19] LABS: Basophils # (auto) 0.1 10 ^3/uL (0-0.2); Basophils % (auto) 0.7 % (0.0-2.0); Eosinophils # (auto) 0.2 10 ^3/uL (0-0.8); Eosinophils % (auto) 2.4 % (0.0-7.0); Hematocrit 37.7 % (41.0-53.0); Hemoglobin 13.2 g/dL (13.5-17.5); Lymphocytes # (auto) 1.2 10 ^3/uL (0.4-5.4); Lymphocytes % (auto) 15.9 % (10.0-50.0); Mean Corpuscular Hemoglobin 30.1 pg (28.0-32.0); Mean Corpuscular Hgb Conc. 35.1 g/dL (32.0-36.0); Mean Corpuscular Volume 85.8 fL (80.0-100.0); Monocytes # (auto) 0.7 10 ^3/uL (0-1.3); Monocytes % (auto) 8.4 % (0.0-12.0); Neutrophils # (auto) 5.7 10 ^3/uL (1.6-8.6); Neutrophils % (auto) 72.6 % (37.0-80.0); Nucleated Red Blood Cells % 0.1 %; Red Cell Distribution Width 15.1 % (11.8-14.3); White Blood Cell 7.8 10^3/uL (4.4-10.8)
[2020-10-13 11:20] LABS: Urine Bacteria FEW /hpf (None Seen); Urine Blood Negative /uL (Negative); Urine Hyaline Cast FEW /lpf (0 - 2); Urine Specific Gravity 1.021 (1.001-1.035); Urine WBC 1 /hpf (0 - 3)
[2020-10-13 11:39] LABS: Albumin 3.3 g/dL (3.4-5.0); Calcium 8.3 mg/dL (8.5-10.1); Potassium 3.5 mmol/L (3.5-5.1)
[2020-10-13 11:40] LABS: Salicylate < 1.7 mg/dL (2.8-20.0)
[2020-10-13 11:41] LABS: Acetaminophen < 2.0 ug/mL (10-30)
[2020-10-13 11:43] LABS: BUN/Creatinine Ratio 28.3; Bilirubin, Total 0.4 mg/dL (0.2-1.0); Total Protein 7.8 g/dL (6.4-8.2)
[2020-10-13 11:57] LABS: Alcohol, Urine < 3.0 mg/dL (0-10); Amphetamine Screen, Urine POSITIVE (NEGATIVE); Barbiturate Scree,Urine NEGATIVE (NEGATIVE); Benzodiazephine Screen, Urine NEGATIVE (NEGATIVE); Cannabinoid Screen, Urine POSITIVE (NEGATIVE); Cocaine Screen, Urine NEGATIVE (NEGATIVE); Opiate Scree,Urine NEGATIVE (NEGATIVE); Phencyclidine Screen, Urine NEGATIVE (NEGATIVE)
== END 2020-10-14 06:29 | disposition still patient (30) ==
LOC: ER 10:57
DX: F32.9 Major depressive disorder, single episode, unspecified (principal); R45.851 Suicidal ideations; K21.9 Gastro-esophageal reflux disease without esophagitis; E78.5 Hyperlipidemia, unspecified; F17.210 Nicotine dependence, cigarettes, uncomplicated; Z59.0 Homelessness; Z90.49 Acquired absence of other specified parts of digestive tract; Z90.89 Acquired absence of other organs; Z20.822 Contact with and (suspected) exposure to COVID-19
CPT/HCPCS: 36415; 80053; 80307; 80329; 81001; 82962; 85025; 87426; 93005